=== PATIENT | male | born 1955 | race Caucasian/White ===

== ENCOUNTER 2024-08-14 12:33 | Outpatient (CLI) | payer MEDICARE, SELFPAY ==
--- NOTE | 2024-08-14 12:43 | XR_ITS ---
WS: [id number] XR hip LT 2-3V wo/w pel* [id number] REASON FOR EXAM: M25.559 - Pain in unspecified hip FINDINGS: No fracture or focal bone lesion. Moderate narrowing of the posterior inferior joint space with moderate subchondral sclerosis and mild osteophytosis. Mild narrowing of the anterior superior joint space with moderate subchondral sclerosis and osteophytosis. Moderate osteophytosis of the femoral head. XR/XR hip LT 2-3V wo/w pel* [id number] IMPRESSION: Moderate osteoarthritis of the left hip as above.
== END 2024-08-14 12:34 | disposition home or self-care (01) ==
PROVIDERS: PCP Nurse Practitioner Family; Visit Provider Nurse Practitioner Family
DX: M25.559 Pain in unspecified hip (principal); M16.12 Unilateral primary osteoarthritis, left hip; M25.752 Osteophyte, left hip; R93.7 Abnormal findings on diagnostic imaging of other parts of musculoskeletal system
CPT/HCPCS: 73502

== ENCOUNTER → 2024-08-28 07:41 | Outpatient (BNVA) | payer MEDICARE, SELFPAY | PROVIDERS: PCP Nurse Practitioner Family; Visit Provider Podiatrist Foot & Ankle Surgery | DX: E11.9 Type 2 diabetes mellitus without complications (principal); L60.1 Onycholysis; L84 Corns and callosities; M20.42 Other hammer toe(s) (acquired), left foot | CPT/HCPCS: 99204 ==

== ENCOUNTER → 2024-09-24 11:06 | Outpatient (BNVA) | payer MEDICARE, SELFPAY | PROVIDERS: PCP Nurse Practitioner Family; Visit Provider Nurse Practitioner Family | DX: Z12.5 Encounter for screening for malignant neoplasm of prostate (principal); I10 Essential (primary) hypertension; E11.9 Type 2 diabetes mellitus without complications; R53.83 Other fatigue | CPT/HCPCS: 80053; 80061; 83036; 85007; 85025; G0103 ==

== ENCOUNTER → 2024-10-23 12:00 | Outpatient (BNVA) | payer MEDICARE, SELFPAY | PROVIDERS: PCP Nurse Practitioner Family; Visit Provider Nurse Practitioner Family | DX: Z12.5 Encounter for screening for malignant neoplasm of prostate (principal); D64.9 Anemia, unspecified | CPT/HCPCS: 85025; G0103 ==